=== PATIENT | female | born 1995 | race African-American/Black ===

== ENCOUNTER 2018-02-01 05:34 | Inpatient (IN) | payer OTHER ==
[2018-02-01] MEDS: LR 1,000 ML IV ×4 (06:00→16:32)
[2018-02-01 06:54] LABS: HEMATOCRIT 28.3 % (36.0-47.0); HEMOGLOBIN 8.7 g/dl (12.0-15.5); MEAN CORPUSCULAR HEMOGLOBIN 21.2 pg (27.0-33.0); MEAN CORPUSCULAR HGB CONC 30.7 g/dl (32.0-36.5); MEAN CORPUSCULAR VOLUME 68.9 fl (80.0-96.0); PLATELET COUNT, AUTOMATED 243 10^3/uL (150-450); RED BLOOD COUNT 4.11 10^6/uL (4.00-5.40); RED CELL DISTRIBUTION WIDTH 18.6 % (11.5-14.5); WHITE BLOOD COUNT 9.5 10^3/uL (4.0-10.0)
[2018-02-01] MEDS ORDERED: LR 1,000 ML IV (07:00)
[2018-02-01] MEDS: BICITRA 30ML SOLN UDC PO (07:40)
[2018-02-01] MEDS ORDERED: OXYTOCIN INJ 10 UNITS/ML VIAL (J2590) As Ordered (08:03)
[2018-02-01] MEDS ORDERED: MORPHINE PRES-FREE INJ 10 MG/10 ML VIAL (J2274) As Ordered (08:03)
[2018-02-01] MEDS ORDERED: ONDANSETRON 4MG/2ML VIAL (J2405) As Ordered (08:07)
[2018-02-01] MEDS ORDERED: PHENYLephrine HCL 500 MCG/5 ML (100MCG/ML) SYRINGE (J2370) As Ordered (08:10)
[2018-02-01] MEDS ORDERED: METOCLOPRAMIDE INJ 10MG/2ML VIAL (J2765) As Ordered (08:44)
[2018-02-01] MEDS: DOCUSATE SODIUM 100 MG CAP PO ×2 (09:00→20:23)
[2018-02-01] MEDS: PRENATAL VITAMINS CHEWABLE TABLET PO (09:00)
[2018-02-01] MEDS ORDERED: PERCOCET 5MG/325MG TAB PO ×2 (09:30→09:45)
[2018-02-01] MEDS ORDERED: RHOGAM 300 MCG (1500 IU) INJ (J2790) IM (09:30)
[2018-02-01] MEDS ORDERED: MEASLES,MUMPS,RUBELLA VACCINE INJ (MMR-II) (90707) SC (09:30)
[2018-02-01] MEDS ORDERED: KETOROLAC 30 MG/ML VIAL (J1885) IV (09:45)
[2018-02-01] MEDS ORDERED: fentaNYL 100 MCG/2 ML INJECTION (J3010) IV (09:45)
[2018-02-01] MEDS ORDERED: MEPERIDINE INJ 25 MG/ML VIAL (J2175) IV (09:45)
[2018-02-01] MEDS ORDERED: NALBUPHINE HCL 10 MG/ML AMP (J2300) IV (09:45)
[2018-02-01] MEDS ORDERED: ONDANSETRON 4MG/2ML VIAL (J2405) IV (09:45)
[2018-02-01] MEDS ORDERED: METOCLOPRAMIDE INJ 10MG/2ML VIAL (J2765) IV (09:45)
[2018-02-01] MEDS: KETOROLAC 30 MG/ML VIAL (J1885) IV ×3 (10:00→21:46)
[2018-02-02] MEDS: KETOROLAC 30 MG/ML VIAL (J1885) IV (05:36)
[2018-02-02 06:49] LABS: HEMATOCRIT 23.6 % (36.0-47.0); HEMOGLOBIN 7.2 g/dl (12.0-15.5); MEAN CORPUSCULAR HGB CONC 30.5 g/dl (32.0-36.5); MEAN CORPUSCULAR VOLUME 68.8 fl (80.0-96.0); PLATELET COUNT, AUTOMATED 209 10^3/uL (150-450); RED BLOOD COUNT 3.43 10^6/uL (4.00-5.40); RED CELL DISTRIBUTION WIDTH 18.6 % (11.5-14.5); WHITE BLOOD COUNT 11.6 10^3/uL (4.0-10.0)
[2018-02-02] MEDS: diphenhydrAMINE 50 MG CAP PO ×2 (08:44→16:36)
[2018-02-02] MEDS: PRENATAL VITAMINS CHEWABLE TABLET PO (08:44)
[2018-02-02] MEDS: PERCOCET 5MG/325MG TAB PO ×2 (08:45→16:36)
[2018-02-02] MEDS: DOCUSATE SODIUM 100 MG CAP PO ×2 (08:45→20:02)
[2018-02-02] MEDS: FERROUS SULFATE 325MG TAB PO ×2 (10:48→20:02)
[2018-02-02] MEDS: IBUPROFEN 800 MG TAB PO ×2 (10:48→20:02)
[2018-02-02] MEDS ORDERED: PILL CRUSHER/CUTTER 1 EACH XX (20:15)
[2018-02-03] MEDS: IBUPROFEN 800 MG TAB PO (04:11)
[2018-02-03] MEDS: SIMETHICONE 80 MG CHEW TAB PO (06:03)
[2018-02-03] MEDS: FERROUS SULFATE 325MG TAB PO (08:15)
[2018-02-03] MEDS: DOCUSATE SODIUM 100 MG CAP PO (08:15)
[2018-02-03] MEDS: PRENATAL VITAMINS CHEWABLE TABLET PO (08:16)
== END 2018-02-03 12:20 | disposition home or self-care (01) | DRG 773 ==
LOC: M LDI 05:34 → M OBS 10:20
PROVIDERS: Obstetrics & Gynecology
PROC: 10D00Z1 Extraction of Products of Conception, Low, Open Approach (ICD-10-PCS; principal; 2018-02-01 07:30)
PROC: 0HB7XZZ Excision of Abdomen Skin, External Approach (ICD-10-PCS; 2018-02-01 07:30)
DX: O34.211 Maternal care for low transverse scar from previous cesarean delivery (principal); Z3A.39 39 weeks gestation of pregnancy; Z37.0 Single live birth

== ENCOUNTER 2019-04-21 12:09 | Emergency (ER) | payer OTHER ==
[~2019-04-21] VITALS: Ht 160 cm; Wt 48.0 kg
[~2019-04-21 12:09] MED LIST: COLA100C5 PO; FERR325T3 PO; IBUP-1114 PO; OXYC1TAB23 PO; PRENTAB29 PO; PRENTAB9 PO
[2019-04-21 12:10] VITALS: BP 118/69
[2019-04-21] MEDS ORDERED: DEPO150I (12:15)
[2019-04-21] MEDS ORDERED: ONDA4TAB6 PO (12:56)
[2019-04-21] MEDS ORDERED: ONDANSETRON 4 MG ORAL DISINTEGRATING TAB (Q0162 PER 1MG) PO ONE (13:00)
== END 2019-04-21 13:26 | disposition home or self-care (01) ==
LOC: M ED 12:09
DX: R11.2 Nausea with vomiting, unspecified (principal); R19.7 Diarrhea, unspecified; A08.4 Viral intestinal infection, unspecified; F32.9 Major depressive disorder, single episode, unspecified; Z79.899 Other long term (current) drug therapy
CPT/HCPCS: 99282; Q0162